=== PATIENT | female | born 1990 | race Hispanic/Latino ===

== ENCOUNTER 2017-09-05 03:06 | Emergency (ER) | payer BC ==
[2017-09-05 03:22] VITALS: BMI 41.4
[2017-09-05 03:26] VITALS: RESP 18; TEMP 97.8; O2SAT 100
--- NOTE | 2017-09-05 03:37 | ED PDOC ---
Arrival/HPI - General Chief Complaint: Female Genitourinary Time Seen by Provider: 09/05/17 03:14 Historian: Patient - History of Present Illness Narrative History of Present Illness (Text): 09/05/17 03:33 Sandra Macias is a 27 year old female, P:0, possibly 5- 6 weeks , who presents to the Emergency department complaining of vaginal spotting. Patient states she woke up tonight with dark vaginal spotting. Patient notes some associated mild abdominal cramping earlier ,none now.. Patient states she is currently on pre-deep vitamins and is schedule for an appointment with her OBGYN tomorrow. Patient denies any fever, nausea, vomiting, diarrhea, urinary symptoms, back pain, headache, dizziness, or any other complaints. Symptom Onset: Gradual Symptom Course: Unchanged Quality: Cramping Activities at Onset: Light Context: Home Past Medical History - Provider Review Nursing Documentation Reviewed: Yes - Psychiatric Hx Substance Use: No - Anesthesia Hx Anesthesia: No Family/Social History - Physician Review Nursing Documentation Reviewed: Yes Family/Social History: Unknown Family HX Smoking Status: n Hx Alcohol Use: No Hx Substance Use: No Allergies/Home Meds Allergies/Adverse Reactions: Allergies No Known Allergies Allergy (Verified 09/05/17 03:21) Home Medications: Home Meds Medication Instructions Recorded Confirmed No Known Home Med 09/05/17 09/05/17 Review of Systems - Physician Review All systems were reviewed & negative as marked: Yes - Review of Systems Constitutional: Normal. absent: Fevers Eyes: Normal ENT: Normal Respiratory: Normal. absent: SOB, Cough Cardiovascular: Normal. absent: Chest Pain Gastrointestinal: Normal, Abdominal Pain. absent: Diarrhea, Nausea, Vomiting, Appetite Changes Genitourinary Female: Vaginal Bleeding (+dark vaginal spotting). absent: Dysuria, Frequency, Hematuria, Urine Output Changes Musculoskeletal: Normal. absent: Back Pain, Neck Pain Skin: Normal. absent: Rash Neurological: Normal. absent: Headache, Dizziness Endocrine: Normal Hemo/Lymphatic: Normal Psychiatric: Normal Physical Exam Vital Signs Reviewed: Yes Vital Signs Temp Pulse Resp BP Pulse Ox 09/05/17 05:10 106 H 18 143/86 100 09/05/17 03:25 97.8 F 114 H 18 153/84 H 100 Temperature: Afebrile Blood Pressure: Normal Pulse: Regular Respiratory Rate: Normal Appearance: Positive for: Well-Appearing, Non-Toxic, Comfortable Pain Distress: None Mental Status: Positive for: Alert and Oriented X 3 - Systems Exam Head: Present: Atraumatic, Normocephalic Pupils: Present: PERRL Extroacular Muscles: Present: EOMI Conjunctiva: Present: Normal Mouth: Present: Moist Mucous Membranes Neck: Present: Normal Range of Motion Respiratory/Chest: Present: Clear to Auscultation, Good Air Exchange. No: Respiratory Distress, Accessory Muscle Use Cardiovascular: Present: Regular Rate and Rhythm, Normal S1, S2. No: Murmurs Abdomen: Present: Normal Bowel Sounds. 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 No: Vaginal Bleeding, Adenexal Tenderness, Cervical Motion Tendernes Back: Present: Normal Inspection Upper Extremity: Present: Normal Inspection. No: Cyanosis, Edema Lower Extremity: Present: Normal Inspection. No: Edema Neurological: Present: GCS=15, CN II-XII Intact, Speech Normal Skin: Present: Warm, Dry, Normal Color. No: Rashes Psychiatric: Present: Alert, Oriented x 3, Normal Insight, Normal Concentration Medical Decision Making ED Course and Treatment: 09/05/17 03:33 Impression: 27 year old female complaining of dark vaginal spotting and abdominal cramping tonight. Plan: -- Transvaginal US -- Labs, blood type and screen, Beta-UCG -- UA -- Reassess and disposition Progress Notes: 09/05/17 05:12 Transvaginal US shows: Gestation: There is a gestational sac in the uterine fundus. There is no yolk sac present. There is no embryonic pole demonstrated. Cardiac activity was not detected The average ultrasound age of the gestation is less than 4 weeks. Placenta/amniotic fluid: Cannot be adequately evaluated due to the early gestational age. Uterus/cervix: There is a hypoechogenicity within the endocervical canal representing blood products. This probably correlates to patient's history of vaginal spotting blood. The anteverted uterus measures 9.2 x 4.4 x 5.5 cm. The endometrial stripe measures 17 mm. Nabothian cysts within the cervix. Posterior fundal uterine fibroid measuring 1.1 x 1.0 x 1.1 cm. Ovaries: The right ovary measures 3.7 x 2.3 x 3.8 cm. There is right ovarian dominant follicle measuring 0.9 x 0.7 x 0.9 cm. The left ovary measures 3.4 x 2.5 x 2.7 cm. Duplex assessment demonstrates presence of color Doppler signal and spectral Doppler waveform in right ovary. Duplex assessment demonstrates presence of color Doppler signal and spectral Doppler waveform in left ovary. No mass. Free fluid: No free fluid. Bladder: Partially distended bladder. IMPRESSION: 1. There is a hypoechogenicity within the endocervical canal representing blood products. This probably correlates to patient's history of vaginal spotting blood. 2. Single intrauterine gestational sac. Follow up examination is advised to document viability of the fetus. 3. No evidence of ectopic . The possibility of pseudo gestational sac with ectopic cannot be excluded. Correlation with clinical data is recommended. 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 - Lab Interpretations Lab Results: 09/05/17 03:43 09/05/17 03:43 Lab Results 09/05/17 03:43: Blood Type O POSITIVE, Antibody Screen Negative, BBK History Checked No verified bt 09/05/17 03:43: Beta HCG, Quant 1121.10 H 09/05/17 03:43: Sodium 139, Potassium 3.9, Chloride 106, Carbon Dioxide 20 L, Anion Gap 17, BUN 11, Creatinine 0.6 L, Est GFR ( Amer) > 60, Est GFR ( Non-Af Amer) > 60, Random Glucose 129 H, Calcium 9.6, Total Bilirubin 0.9, AST 22, ALT 37, Alkaline Phosphatase 57, Total Protein 7.2, Albumin 3.9, Globulin 3.3, Albumin/Globulin Ratio 1.2 09/05/17 03:43: Urine Color Light yellow, Urine Appearance Clear, Urine pH 6.0, Ur Specific [place] 1.020, Urine Protein Negative, Urine Glucose (UA) Negative, Urine Ketones Negative, Urine Blood Large H, Urine Nitrate Negative, Urine Bilirubin Negative, Urine Urobilinogen 0.2, Ur Leukocyte Esterase Negative, Urine RBC 20 - 25, Urine WBC 2 - 5, Ur Epithelial Cells 6 - 8, Urine Bacteria Mod, Urine HCG, Qual Positive 09/05/17 03:43: WBC 9.8, RBC 4.62, Hgb 13.5, Hct 39.6, MCV 85.7, MCH 29.2, MCHC 34.1, RDW 13.5, Plt Count 389, MPV 9.2, Gran % 59.8, Lymph % (Auto) 28.8, [place] % (Auto) 8.6 H, Eos % (Auto) 2.2, Baso % (Auto) 0.6, Gran # 5.86, Lymph # (Auto ) 2.8, [place] # (Auto) 0.8 H, Eos # (Auto) 0.2, Baso # (Auto) 0.06 I have reviewed the lab results: Yes - RAD Interpretation Radiology Orders: 09/05/17 03:37 OB TRANSVAGINAL [US] Stat [place]: Radiologist - Scribe Statement The provider has reviewed the documentation as recorded by the Remiibgage Agarwal Provider Scribe Attestation: All medical record entries made by the Scribe were at my direction and personally dictated by me. I have reviewed the chart and agree that the record accurately reflects my personal performance of the history, physical exam, medical decision making, and the department course for this patient. I have also personally directed, reviewed, and agree with the discharge instructions and disposition. Disposition/Present on Arrival - Present on Arrival Any Indicators Present on Arrival: No History of DVT/PE: No History of Uncontrolled Diabetes: No Urinary Catheter: No History of Decub. 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
[2017-09-05 04:10] LABS: URINE BILIRUBIN NEGATIVE (NEGATIVE); URINE BLOOD LARGE (NEGATIVE); URINE GLUCOSE (UA) NEGATIVE (NEGATIVE); URINE LEUKOCYTE ESTERASE NEGATIVE Leu/uL (NEGATIVE); URINE PROTEIN NEGATIVE mg/dL (<30 mg/dL); URINE UROBILINOGEN 0.2 E.U./dL (<1 E.U./dL)
[2017-09-05 04:22] LABS: URINE APPEARANCE CLEAR (CLEAR); URINE COLOR LIGHT YELLOW (YELLOW)
[2017-09-05 04:23] LABS: HCG,QUALITATIVE URINE POSITIVE (NEGATIVE)
[2017-09-05 04:24] LABS: HEMOGLOBIN 13.5 g/dL (12.0-16.0); MEAN CELL VOLUME 85.7 fl (80.0-105.0); MEAN CORPUSCULAR HEMOGLOBIN 29.2 pg (25.0-35.0); MEAN CORPUSCULAR HGB CONC 34.1 g/dl (31.0-37.0); RBC 4.62 10^6/uL (3.5-6.1); WHITE BLOOD COUNT 9.8 10^3/ul (4.5-11.0)
[2017-09-05 04:25] LABS: BASO # 0.06 K/mm3 (0.0-2.0); BASO % 0.6 % (0.0-3.0); EOS # 0.2 (0.0-0.7); EOS % 2.2 % (1.5-5.0); GRAN # 5.86 (1.4-6.5); GRAN % 59.8 % (50.0-68.0); LYMPH # 2.8 (1.2-3.4); LYMPH % 28.8 % (22.0-35.0); MEAN PLATELET VOLUME 9.2 fl (7.0-11.0); MONO # 0.8 (0.1-0.6); MONO % 8.6 % (1.0-6.0); RED CELL DISTRIBUTION WIDTH 13.5 % (11.5-14.5)
[2017-09-05 04:30] LABS: URINE BACTERIA MOD (NEG); URINE RBC 20 - 25 /hpf (0-2)
[2017-09-05 04:44] LABS: ALB/GLOB RATIO 1.2 (1.1-1.8); ALBUMIN 3.9 g/dL (3.0-4.8); ALT/SGPT 37 U/L (7-56); AST/SGOT 22 U/L (14-36); BLOOD UREA NITROGEN 11 mg/dL (7-21); CALCIUM 9.6 mg/dL (8.4-10.5); GFR AFRICAN-AMERICAN > 60; GFR NON-AFRICAN AMERICAN > 60
[2017-09-05 05:11] VITALS: BP 143/86; PULSE 106
--- NOTE | 2017-09-05 05:11 | US ---
EXAM: US , Transvaginal US Doppler venous and arterial CLINICAL HISTORY: 27 years old, female; Pain; complicated by abdominal or pelvic pain; Lower; First trimester; Gestational age or lmp: 07/18/2017; ; Additional info: Vaginal spotting(blood) TECHNIQUE: Real-time transvaginal obstetrical ultrasound of the maternal pelvis and a first trimester with image documentation. Transvaginal imaging was used for better evaluation of the fetus and adnexa.Grayscale, color and spectral pulse Doppler images are submitted.A duplex/doppler ultrasound was performed specifically BOTH COLOR FLOW AND spectral Doppler analysis (waveforms) were performed and interpreted. COMPARISON: No relevant prior studies available. FINDINGS: Gestation: There is a gestational sac in the uterine fundus. There is no yolk sac present. There is no embryonic pole demonstrated. Cardiac activity was not detected The average ultrasound age of the gestation is less than 4 weeks. Placenta/amniotic fluid: Cannot be adequately evaluated due to the early gestational age. Uterus/cervix: There is a hypoechogenicity within the endocervical canal representing blood products. This probably correlates to patient's history of vaginal spotting blood. The anteverted uterus measures 9.2 x 4.4 x 5.5 cm. The endometrial stripe measures 17 mm. Nabothian cysts within the cervix. Posterior fundal uterine fibroid measuring 1.1 x 1.0 x 1.1 cm. Ovaries: The right ovary measures 3.7 x 2.3 x 3.8 cm. There is right ovarian dominant follicle measuring 0.9 x 0.7 x 0.9 cm. The left ovary measures 3.4 x 2.5 x 2.7 cm. Duplex assessment demonstrates presence of color Doppler signal and spectral Doppler waveform in right ovary. Duplex assessment demonstrates presence of color Doppler signal and spectral Doppler waveform in left ovary. No mass. Free fluid: No free fluid. Bladder: Partially distended bladder. IMPRESSION: 1. There is a hypoechogenicity within the endocervical canal representing blood products. This probably correlates to patient's history of vaginal spotting blood. 2. Single intrauterine gestational sac. Follow up examination is advised to document viability of the fetus. 3. No evidence of ectopic . The possibility of pseudo gestational sac with ectopic cannot be excluded. Correlation with clinical data is recommended.
== END 2017-09-05 06:11 | disposition home or self-care (01) ==
LOC: ED 03:06
DX: O46.91 Antepartum hemorrhage, unspecified, first trimester (principal); Z3A.01 Less than 8 weeks gestation of pregnancy